=== PATIENT | female | born 1995 | race Caucasian/White ===

== ENCOUNTER 2019-11-22 20:32 | Emergency (ER) | payer OTHER, SELFPAY ==
[2019-11-22 20:32] VITALS: BP 126/102; PULSE 122; RESP 20; TEMP 36.7; O2SAT 98
--- NOTE | 2019-11-22 20:51 | ED_ITS ---
HPI - Alcohol General Chief Complaint: Alcohol Stated Complaint: Alcohol Time Seen by Provider: 11/22/19 20:33 History of Present Illness HPI narrative: [place]. Father reportedly on scene and did not want to take her with him. Brought in by EMS for intoxication. History limited by intoxication. Related Data Home Medications Medication Instructions Recorded Confirmed dextroamphetamine-amphetamine ER ea PO 10/10/19 20 mg 24hr capsule,extend release Allergies Allergy/AdvReac Type Severity Reaction Status Date / Time No Known Allergies Allergy Verified 10/10/19 07:45 Review of Systems Review of Systems: ROS unobtainable: Yes unobtainable due to mental status [facility] Surgical History Surgical History H/O dilation and curettage after delivery 01/2018 Social History Social History Smoking status: Current every day smoker Tobacco type: e-cigarettes/vaping Alcohol intake: current Substance use: never Exam Const: General: healthy appearing, no acute distress and alert Orientation/consciousness: confusion HENMT: Head: normal to inspection Eyes: Pupils: Equal, round and reactive pupils present Resp: Effort & Inspection: normal respiratory effort Auscultation: clear to auscultation bilaterally Cardio: Rate: regular rate Rhythm: regular rhythm GI: GI Palp: Yes Soft to palpation and No Tenderness to palpation present (GI) Skin: General skin exam: normal color Neuro: General: moves all extremities and no focal motor deficits Other: Poor coordination and slurred speech Extrem: General: normal to inspection Psych: Other: Labile mood Course Vital Signs Vital signs: Vital Signs Temperature 36.7 C 11/22/19 20:32 Pulse Rate 122 H 11/22/19 20:32 Respiratory Rate 20 11/22/19 20:32 Blood Pressure 126/102 H 11/22/19 20:32 Pulse Oximetry 98 11/22/19 20:32 Temperature 36.7 C 11/22/19 20:32 Pulse Rate 122 H 11/22/19 20:32 Respiratory Rate 20 11/22/19 20:32 Blood Pressure 126/102 H 11/22/19 20:32 Pulse Oximetry 98 11/22/19 20:32 MDM - Alcohol MDM Narrative Medical decision making narrative: Clinically very intoxicated. Her father arrived. He feels comfortable taking responsibility for her. Differential Diagnosis Differential diagnosis: Likely alcohol intoxication Medical Records Attestation: I reviewed the patient's medical records. Discharge Plan Discharge Clinical Impression: Alcoholic intoxication Patient Disposition: Home, Self-Care Condition: Stable Instructions: Alcohol Intoxication (ED) Prescriptions: No Action dextroamphetamine-amphetamine 20 mg capsule,extended release 24hr PO RF: 0 Follow-up/Referrals: Callum,Eufemia Mendoza MD [Primary Care Provider] -
== END 2019-11-22 22:29 | disposition home or self-care (01) ==
PROVIDERS: Emergency Provider Emergency Medicine; PCP Family Medicine
DX: F10.129 Alcohol abuse with intoxication, unspecified (principal); F17.290 Nicotine dependence, other tobacco product, uncomplicated
CPT/HCPCS: 99283

== ENCOUNTER 2020-01-16 06:58 | Outpatient (NON) | payer OTHER, SELFPAY ==
[2020-01-16 18:22] LABS: SARS-CoV-2 RNA PCR Negative
== END 2020-01-16 06:59 ==
LOC: ANHCOVIDDT 07:03
PROVIDERS: Visit Provider Family Medicine
DX: Z20.828 Contact with and (suspected) exposure to other viral communicable diseases (principal)
CPT/HCPCS: 87635; C9803; U0003

== ENCOUNTER 2021-10-07 13:19 | Observation (INO) | payer BC, SELFPAY ==
[2021-10-07] VITALS (21 sets, daily range): BP systolic 114–145; BP diastolic 64–98; PULSE 98–137; RESP 14–20; TEMP 36.5–37.1; O2SAT 95–100
--- NOTE | ~2021-10-07 | US_ITS ---
EXAMINATION: US venous doppler [facility] DATE: 10/07/2021 14:15 INDICATION: Left lower limb swelling TECHNIQUE: Hernadez scale images without and with compression and Doppler images of the left lower extrem ity veins were obtained. COMPARISON: None FINDINGS: The left common femoral vein, profunda femoral vein, femoral vein, popliteal vein, peroneal trunk, posterior tibial veins, and greater saphenous vein are patent. There is diffuse soft tissue e raymond of the left leg. IMPRESSION: 1. Patent left lower extremity veins. No evidence of deep venous thrombosis. Reviewed, dictated and finalized at location B.
--- NOTE | 2021-10-07 14:01 | ED.SKABFB ---
HPI - Skin/Abscess/Foreign Bdy General Chief complaint: Skin/Abscess/Foreign Body Stated complaint: possible LLE infection Time Seen by Provider: 10/07/21 13:57 Source: patient Mode of arrival: ambulatory Limitations: no limitations History of Present Illness HPI narrative: Patient had a cut, 1 cm left lower leg 2 weeks ago during camping, 1 week later started having redness and pain at the left lower leg, had telemedicine, started on Keflex 500 ,3 times daily for the last 6 days, patient been taking 500 every 4 hours to expedite the process of healing. Is getting worse, went to urgent care today then referred to our emergency room. Patient is healthy otherwise, reports some fever, chills, nausea 4 days ago Related Data Home Medications Medication Instructions Recorded Confirmed dextroamphetamine-amphetamine ER 1 cap PO DAILY 10/07/21 10/07/21 30 mg 24hr capsule,extend release Allergies Allergy/AdvReac Type Severity Reaction Status Date / Time No Known Allergies Allergy Verified 10/07/21 14:22 Review of Systems Review of Systems: All systems reviewed & are unremarkable except as noted in HPI and below PMFSH Surgical History Surgical History H/O dilation and curettage after delivery 01/2018 Social History Social History Smoking status: Current every day smoker Tobacco type: e-cigarettes/vaping Alcohol intake: current Alcohol use details: twice a week Substance use: never Exam Narrative: General appearance: Well-developed, well-nourished Skin: Normal color extensive erythema, warmth and 2+ edema left foot all the way up to the knee, circumferential, 1 cm laceration lateral side lower leg, no discharge, healing. Head: Normocephalic, nontraumatic Eyes: Clear conjunctiva ENT: Oropharynx normal, ears normal, nose normal Neck: Supple, nontender Chest and respiratory: Airway patent, no respiratory distress, no accessory muscle use Heart: Regular rate/rhythm Abdomen: Soft, nontender, no organomegaly, quiet bowel sounds Vascular: , normal capillary refill. Musculoskeletal: Normal range of motion, nontender back Neurologic: Alert and oriented ?3, [employer] is normal as tested, no gross motor deficit Course Vital Signs Vital signs: Vital Signs Temperature 37.1 C 10/07/21 13:43 Pulse Rate 137 H 10/07/21 13:43 Respiratory Rate 20 10/07/21 13:43 Blood Pressure 145/98 H 10/07/21 13:43 Pulse Oximetry 99 10/07/21 13:43 Oxygen Delivery Room Air 10/07/21 13:43 Temperature 37.1 C 10/07/21 13:43 Pulse Rate 137 H 10/07/21 13:43 Respiratory Rate 20 10/07/21 13:43 Blood Pressure 145/98 H 10/07/21 13:43 Pulse Oximetry 99 10/07/21 13:43 Oxygen Delivery Room Air 10/07/21 13:43 MDM - Skin/Abscess/Foreign Bdy Differential Diagnosis Differential diagnosis: Likely abscess of skin or subcutaneous tissue and cellulitis Lab Data Result diagrams: 10/07/21 14:40 10/07/21 14:40 Labs: Lab Results 10/07/21 10/07/21 10/07/21 Range/Units 14:40 14:40 14:40 WBC Pending RBC Pending Hgb Pending Hct Pending MCV Pending MCH Pending MCHC Pending RDW Pending Plt Count Pending MPV Pending Immature Gran % (Auto) Pending Neut % (Auto) Pending Lymph % (Auto) Pending [place] % (Auto) Pending Eos % (Auto) Pending Baso % (Auto) Pending Lymph # (Auto) Pending [place] # (Auto) Pending Eos # (Auto) Pending Baso # (Auto) Pending Abs Immat Gran (auto) Pending Absolute Neuts (a
[2021-10-07 14:52] LABS: Basophils Absolute Auto 0.1 K/mm3 (0.0-0.1); Basophils Percent Auto 0.9 % (0.2-1.2); Eosinophils Absolute Auto 0.1 K/mm3 (0-0.3); Eosinophils Percent Auto 0.7 % (0-4.4); Hematocrit 43.4 % (37.0-47.0); Hemoglobin 14.1 g/dL (12.0-15.0); Immature Granulocyte Absolute 0.83 K/mm3 (0.00-0.031); Lymphocytes Absolute Auto 1.92 K/mm3 (0.9-3.2); Lymphocytes Percent Auto 16.2 % (18.3-44.2); Mean Corpuscular HGB Conc 32.5 g/dl (32-36); Mean Corpuscular Hemoglobin 30.2 pg (26-34); Mean Corpuscular Volume 92.9 fl (80-100); Mean Platelet Volume 10.2 fl (7.4-10.4); Monocytes Absolute Auto 0.9 K/mm3 (0.1-0.6); Monocytes Percent Auto 7.9 % (2.6-8.5); Neutrophils Percent Auto 67.3 % (45.5-73.1); Platelet Count Result 370 k/mm3 (150-375); Red Blood Count 4.67 M/mm3 (4.2-5.4); Red Cell Distribution Width 13.6 % (11.5-14.5); White Blood Count 11.8 K/mm3 (4.5-10.0)
[2021-10-07 15:07] LABS: Lactic Acid Reflex 0.9 mmol/L (0.7-2.0)
[2021-10-07 15:08] LABS: INR 1.1; Prothrombin Time 13.3 Seconds (11.1-14.7)
--- NOTE | 2021-10-07 15:11 | PC.NURSE ---
Report given to YANI Pereyra
[2021-10-07 15:12] LABS: Alanine Aminotransferase 72 U/L (6-35); Albumin Level 4.3 g/dL (3.5-5.1); Alkaline Phosphatase 80 U/L (38-126); Anion Gap 12 mmol/L (8-16); Aspartate Amino Transferase 87 U/L (14-36); Bilirubin,Total 0.4 mg/dL (0.2-1.3); Blood Urea Nitrogen 13 mg/dL (7-17); Calcium 9.8 mg/dL (8.4-10.2); Carbon Dioxide 27 mmol/L (22-30); Chloride 98 mmol/L (98-107); Estimated CRCL calculation 117 ml/min; Estimated Glomerular Filt Rate > 60; Glucose 98 mg/dL (65-110); Potassium 4.2 mmol/L (3.4-5.0); Sodium 137 mmol/L (137-145)
[2021-10-07 15:21] LABS: CRP 10.5 mg/dL (<1.0)
--- NOTE | 2021-10-07 17:10 | PM.IMHP ---
H&P: HPI History of Present Illness Date/Time: 10/07/21 17:10 Chief Complaint: Left leg infection. Narrative: This is a pleasant 26-year-old female with no significant medical history presented to the emergency department for evaluation of a left leg infection. She went camping 2 weekends ago and got a small scratch on her left lower leg, presumably from surrounding brush. She thought nothing of it until about 5 days later when she developed redness and swelling of the left leg left lower leg. She was prescribed Keflex after speaking with a doctor via telemedicine and despite taking the antibiotic her leg has not improved and in fact it has gotten worse. She has been trying to keep the leg elevated but unfortunately she continues to have a pretty significant throbbing and tight pain despite taking Tylenol and ibuprofen. She also endorses a subjective fever, sweats, decreased appetite, and nausea. On arrival to the ER her vital signs were stable and she has been afebrile. She was given a dose of vancomycin for left leg cellulitis and she is being admitted for further IV antibiotics given outpatient treatment failure. Review of Systems Review of Systems: Twelve systems were reviewed. No cold or flu symptoms. No chest or pleuritic pain. No shortness of breath or palpitations. She denies paresthesias, skin color, and temperature changes of the affected limb. A no history of VTE. Except as documented, all other systems were reviewed and are negative. [facility] Past Medical History Medical History (Updated 10/07/21 @ 22:25 by Marzena Shipman PA-C) Anxiety Attention deficit disorder Surgical History Surgical History (Updated 10/07/21 @ 22:22 by Marzena Shipman PA-C) History of dilation and curettage (01/2018) Family History Family History (Updated 10/07/21 @ 22:22 by Marzena Shipman PA-C) Other No pertinent family history Social History Social History (Updated 10/07/21 @ 22:23 by Marzena Shipman PA-C) Social History: Surrogate medical decision maker: Angel Parr, mother. Code status: Full code. Smoking status: Current every day smoker Tobacco type: e-cigarettes/vaping Alcohol intake: former Alcohol use details: She has not drank heavily for over a year. Substance use: never Substance use type: does not use Living arrangements: with family Spiritual care concerns: No Meds Home Medications and Allergies Home Medications Medication Instructions Recorded Confirmed Type dextroamphetamine-amphetamine ER 1 cap PO DAILY 10/07/21 10/07/21 History 30 mg 24hr capsule,extend release Allergies Allergy/AdvReac Type Severity Reaction Status Date / Time No Known Allergies Allergy Verified 10/07/21 14:22 Vital Signs Vital Signs - 24 hr 10/07/21 13:43 10/07/21 14:30 10/07/21 15:04 Temperature 98.8 F Pulse Rate 137 H 121 H Respiratory Rate 20 18 Blood Pressure 145/98 H 121/91 H Pulse Oximetry 99 98 97 Oxygen Delivery Room Air 10/07/21 15:15 10/07/21 15:17 10/07/21 15:30 Temperature Pulse Rate 113 H 115 H Respiratory Rate Blood Pressure 125/84 Pulse Oximetry 97 97 97 Oxygen Delivery 10/07/21 15:32 10/07/21 15:58 10/07/21 15:33 Temperature Pulse Rate 110 H 107 H Respiratory Rate 16 Blood Pressure 126/84 117/79 Pulse Oximetry 97 100 97 Oxygen Delivery Exam Narrative: General: Well-developed, nontoxic-appearing female sitting up in bed. Weight: 79.5 kg. BMI: 32.1. HEENT: PERRL, EOMI. Conjunctivae anicteric. Oral mucosa moist. Neck: Supple. Respiratory: Lungs are clear to auscultation bilaterally. Cardiovascular: Regular rate and rhythm with S1-S2. Gastrointestinal: Abdomen is soft, nontender, and nondistended with positive bowel sounds. No organomegaly. Skin: Warm and dry. A little over a 1 cm superficial laceration on the left lateral lower leg without drainage or fluctuance. There is surrounding erythema whic
--- NOTE | 2021-10-07 18:49 | PC.NURSE ---
report received from Roddy
--- NOTE | 2021-10-07 19:48 | PC.NURSE ---
This patient, Nelson Packer, was admitted to [facility] Surg Room 300-01. Patient/family oriented to hospital policies and general routines including ID bracelet, bed and alarms, visiting hours, pain management, procedures, bathroom and other care routines, personal items, smoking policy, room service/diet, and visiting hours. Information on how to activate the Rapid Response Team has been discussed. Patient/Family are encouraged to report perceived risks to care and to ask questions if they do not understand what they are told or what they should do.
[2021-10-07] MEDS: IBUPROFEN 600 MG TABLET PO (20:01)
[2021-10-07] MEDS: ACETAMINOPHEN 325 MG TABLET 650 MG PO (22:59)
[2021-10-07 23:39] LABS: Acetaminophen < 10 ug/mL (10-30)
[2021-10-08 00:33] LABS: Hepatitis B Surface Antigen Negative (Negative)
[2021-10-08 00:39] LABS: HAV RESULT Negative (Negative); Hepatitis B Core IgM Result Negative (Negative)
[2021-10-08 00:51] LABS: Hepatitis C Virus Antibody Negative (Negative)
[2021-10-08 05:39] VITALS: BP 117/96; PULSE 76; RESP 16; TEMP 36.3; O2SAT 97
[2021-10-08 06:52] LABS: Hematocrit 37.8 % (37.0-47.0); Hemoglobin 12.4 g/dL (12.0-15.0); Mean Corpuscular HGB Conc 32.8 g/dl (32-36); Mean Corpuscular Hemoglobin 30.2 pg (26-34); Mean Corpuscular Volume 92.2 fl (80-100); Mean Platelet Volume 10.5 fl (7.4-10.4); Platelet Count Result 334 k/mm3 (150-375); Red Cell Distribution Width 13.3 % (11.5-14.5); White Blood Count 9.7 K/mm3 (4.5-10.0)
[2021-10-08 07:10] LABS: Alanine Aminotransferase 76 U/L (6-35); Albumin Level 3.5 g/dL (3.5-5.1); Alkaline Phosphatase 65 U/L (38-126); Anion Gap 9 mmol/L (8-16); Aspartate Amino Transferase 108 U/L (14-36); Bilirubin,Total 0.3 mg/dL (0.2-1.3); Blood Urea Nitrogen 15 mg/dL (7-17); Calcium 8.8 mg/dL (8.4-10.2); Carbon Dioxide 27 mmol/L (22-30); Chloride 99 mmol/L (98-107); Estimated CRCL calculation 121 ml/min; Estimated Glomerular Filt Rate > 60; Glucose 101 mg/dL (65-110); Magnesium 2.3 mg/dL (1.6-2.3); Potassium 3.8 mmol/L (3.4-5.0); Sodium 135 mmol/L (137-145)
[2021-10-08] MEDS: ENOXAPARIN 40 MG/0.4 ML SYRINGE SUB-Q (09:04)
[2021-10-08 14:00] VITALS: BP 122/83; PULSE 104; RESP 16; TEMP 36.6; O2SAT 99
--- NOTE | 2021-10-08 14:13 | PM.IMPN ---
Progress Note: A&P Assessment and Plan (1) Left leg cellulitis: Code(s): L03.116 - Cellulitis of left lower limb Status: Acute Assessment and Plan: She has been on Keflex for several days with worsening symptoms. no purulent drainage or fluctuance noted though. Started on vancomycin and cefazolin. I have encouraged the patient elevate her leg as much as possible. Analgesics available as needed. edema and cellulitic changes continues to improve Duplex ultrasound negative for DVT (2) Elevated LFTs: Code(s): R79.89 - Other specified abnormal findings of blood chemistry Status: Acute Assessment and Plan: Abdominal exam is benign. Acetaminophen level is normal but itis panel is negative Subjective Date/time seen: 10/08/21 14:13 Interval history: HPI:This is a pleasant 26-year-old female with no significant medical history presented to the emergency department for evaluation of a left leg infection. She went camping 2 weekends ago and got a small scratch on her left lower leg, presumably from surrounding brush. She thought nothing of it until about 5 days later when she developed redness and swelling of the left leg left lower leg. She was prescribed Keflex after speaking with a doctor via telemedicine and despite taking the antibiotic her leg has not improved and in fact it has gotten worse. She has been trying to keep the leg elevated but unfortunately she continues to have a pretty significant throbbing and tight pain despite taking Tylenol and ibuprofen. She also endorses a subjective fever, sweats, decreased appetite, and nausea. On arrival to the ER her vital signs were stable and she has been afebrile. She was given a dose of vancomycin for left leg cellulitis and she is being admitted for further IV antibiotics given outpatient treatment failure. 10/08/2021 redness is improving swelling still persists but improving as well remains afebrile. Denies chest pain or shortness of breath. Review of Systems Review of Systems: All systems reviewed & are unremarkable except as noted in HPI and below Exam Narrative: General: Well-developed, nontoxic-appearing female sitting up in bed. HEENT: PERRL, EOMI. Conjunctivae anicteric. Oral mucosa moist. Neck: Supple. Nontender Respiratory: Lungs are clear to auscultation bilaterally. Cardiovascular: Regular rate and rhythm with S1-S2. Gastrointestinal: Abdomen is soft, nontender, and nondistended with positive bowel sounds. No organomegaly. Skin: Warm and dry. A little over a 1 cm superficial laceration on the left lateral lower leg without drainage or fluctuance. There is surrounding erythema which extends to the knee and down to the dorsum of the foot associated with edema which is though receding. cough area warm to touch and mildly tender. Extremities: No cyanosis or clubbing. There is edema of the left leg. Radial and pedal pulses intact. Neurological: Alert. Cranial nerves 2-12 are grossly intact. No gross focal deficits to casual conversation. Psychiatric: Pleasant and cooperative with normal mood and affect. Judgment and insight intact. Objective Data Vital Signs Vital Signs: Vital Signs - 24 hr 10/07/21 14:30 10/07/21 15:04 10/07/21 15:15 Temperature Pulse Rate 121 H 113 H Respiratory Rate 18 Blood Pressure 121/91 H Pulse Oximetry 98 97 97 Oxygen Delivery 10/07/21 15:17 10/07/21 15:30 10/07/21 15:32 Temperature Pulse Rate 115 H 110 H Respiratory Rate Blood Pressure 125/84 126/84 Pulse Oximetry 97 97 97 Oxygen Delivery 10/07/21 15:58 10/07/21 15:33 10/07/21 16:42 Temperature Pulse Rate 107 H Respiratory Rate 16 Blood Pressure 117/79 Pulse Oximetry 100 97 95 Oxygen Delivery 10/07/21 16:45 10/07/21 16:47 10/07/21 17:00 Temperature Pulse Rate Respiratory Rate Blood Pressure 120/84 Pulse Oximetry 97 97 98 Oxygen Delivery 10/07/21 17:02 10/07/21 17
[2021-10-08 20:02] VITALS: O2SAT 98
[2021-10-08] MEDS: ACETAMINOPHEN 325 MG TABLET 650 MG PO (20:45)
[2021-10-08 22:00] VITALS: BP 142/86; PULSE 105; RESP 18; TEMP 36.1; O2SAT 100
[2021-10-09 03:39] LABS: Basophils Absolute Auto 0.1 K/mm3 (0.0-0.1); Eosinophils Absolute Auto 0.1 K/mm3 (0-0.3); Eosinophils Percent Auto 1.2 % (0-4.4); Hematocrit 40.4 % (37.0-47.0); Hemoglobin 12.9 g/dL (12.0-15.0); Immature Granulocyte Absolute 0.84 K/mm3 (0.00-0.031); Immature Granulocyte Percent A 9.8 % (0-0.5); Lymphocytes Absolute Auto 1.99 K/mm3 (0.9-3.2); Lymphocytes Percent Auto 23.2 % (18.3-44.2); Mean Corpuscular HGB Conc 31.9 g/dl (32-36); Mean Platelet Volume 10.1 fl (7.4-10.4); Monocytes Absolute Auto 0.6 K/mm3 (0.1-0.6); Monocytes Percent Auto 6.4 % (2.6-8.5); Neutrophils Percent Auto 58.4 % (45.5-73.1); Platelet Count Result 359 k/mm3 (150-375); Red Cell Distribution Width 13.3 % (11.5-14.5); White Blood Count 8.6 K/mm3 (4.5-10.0)
[2021-10-09 03:57] LABS: Alanine Aminotransferase 104 U/L (6-35); Albumin Level 3.6 g/dL (3.5-5.1); Alkaline Phosphatase 64 U/L (38-126); Anion Gap 9 mmol/L (8-16); Aspartate Amino Transferase 148 U/L (14-36); Bilirubin,Total 0.2 mg/dL (0.2-1.3); Blood Urea Nitrogen 16 mg/dL (7-17); Calcium 8.6 mg/dL (8.4-10.2); Carbon Dioxide 27 mmol/L (22-30); Chloride 103 mmol/L (98-107); Estimated CRCL calculation 121 ml/min; Estimated Glomerular Filt Rate > 60; Glucose 108 mg/dL (65-110); Potassium 4.2 mmol/L (3.4-5.0); Sodium 139 mmol/L (137-145)
[2021-10-09 04:01] LABS: Vancomycin Trough 6.5 ug/mL (10.0-20.0)
[2021-10-09 04:07] LABS: Atypical Lymphocytes Present; Platelet Estimate Adequate (Adequate)
[2021-10-09 06:00] VITALS: BP 121/81; PULSE 84; RESP 18; TEMP 35.7; O2SAT 97
[2021-10-09] MEDS: ENOXAPARIN 40 MG/0.4 ML SYRINGE SUB-Q (07:56)
--- NOTE | 2021-10-09 08:31 | PHAR ---
The patient's home med of Dextroamphetamine-Amphetamine 30 mg capsule,extended release 24hr has been verified.
--- NOTE | 2021-10-09 13:10 | PM.DS ---
DS: Admitting Diagnosis Discharge Date 10/09/2021 Admitting Diagnosis left leg cellulitis DS: Discharge Diagnosis Discharge Diagnosis (1) Left leg cellulitis: Code(s): L03.116 - Cellulitis of left lower limb Status: Acute (2) Elevated LFTs: Code(s): R79.89 - Other specified abnormal findings of blood chemistry Status: Acute DS: Summary Hospital Course Reason for hospitalization: This is a pleasant 26-year-old female with no significant medical history presented to the emergency department for evaluation of a left leg infection. She went camping 2 weekends ago and got a small scratch on her left lower leg, presumably from surrounding brush. She thought nothing of it until about 5 days later when she developed redness and swelling of the left leg left lower leg. She was prescribed Keflex after speaking with a doctor via telemedicine and despite taking the antibiotic her leg has not improved and in fact it has gotten worse. She has been trying to keep the leg elevated but unfortunately she continues to have a pretty significant throbbing and tight pain despite taking Tylenol and ibuprofen. She also endorses a subjective fever, sweats, decreased appetite, and nausea. On arrival to the ER her vital signs were stable and she has been afebrile. She was given a dose of vancomycin for left leg cellulitis and she is being admitted for further IV antibiotics given outpatient treatment failure. Hospital Course: # left leg cellulitis fail outpatient treatment with cephalexin. venous duplex was negative for DVT. Started on vancomycin and Ancef on admission. Improved cellulitis still has some swelling left. Edema pain and warmth has resolved. Will switch antibiotic to Omnicef and doxycycline for 7 more days to complete the course follow-up with PCP as an outpatient basis in a week. Sooner if erythema worsens or fever develops. # Elevated liver enzymes unclear etiology probably from underlying infection. She used to drink quite a bit. Now had. Since a year now. acetaminophen level is negative. Hepatitis panel is negative as well. Will recheck labs in a week. Follow-up with PCP with regard to this # ADHD on Adderall Time Spent with Patient Time attestation: Total time spent providing and/or coordinating discharge services: 40 minutes Exam Narrative: General: Well-developed, nontoxic-appearing female sitting up in bed. HEENT: PERRL, EOMI. Conjunctivae anicteric. Oral mucosa moist. Neck: Supple. Nontender Respiratory: Lungs are clear to auscultation bilaterally. Cardiovascular: Regular rate and rhythm with S1-S2. Gastrointestinal: Abdomen is soft, nontender, and nondistended with positive bowel sounds. No organomegaly. Skin: Warm and dry. A little over a 1 cm superficial laceration on the left lateral lower leg without drainage or fluctuance. Extremities: No cyanosis or clubbing. There is edema of the left leg. Radial and pedal pulses intact. Neurological: Alert. Cranial nerves 2-12 are grossly intact. No gross focal deficits to casual conversation. Psychiatric: Pleasant and cooperative with normal mood and affect. Judgment and insight intact. DS: Data Data Completed and Pending Labs on day of discharge: Labs from last 24 hours 10/09/21 10/09/21 10/09/21 03:17 03:17 03:17 WBC 8.6 RBC 4.30 Hgb 12.9 Hct 40.4 MCV 94.0 MCH 30.0 MCHC 31.9 L RDW 13.3 Plt Count 359 MPV 10.1 Immature Gran % (Auto) 9.8 H Neut % (Auto) 58.4 Lymph % (Auto) 23.2 [place] % (Auto) 6.4 Eos % (Auto) 1.2 Baso % (Auto) 1.0 Lymph # (Auto) 1.99 [place] # (Auto) 0.6 Eos # (Auto) 0.1 Baso # (Auto) 0.1 Abs Immat Gran (auto) 0.84 H Absolute Neuts (auto) 5.0 Absolute Nucleated RBC 0.0 Nucleated RBC % 0.0 Atypical Lymphocytes Present Platelet Estimate Adequate Sodium 139 Potassium 4.2 Chloride 103 Carbon Dioxide 27 Anion Gap 9 BUN
== END 2021-10-09 14:20 | disposition home or self-care (01) ==
LOC: ANHED 14:26 → ANH3MEDSUR 18:29
PROVIDERS: Physician Assistant; Admitting Provider Family Medicine; Emergency Provider Emergency Medicine; PCP Family Medicine; Visit Provider Internal Medicine
DX: L03.116 Cellulitis of left lower limb (principal); R79.89 Other specified abnormal findings of blood chemistry; F17.290 Nicotine dependence, other tobacco product, uncomplicated; F90.9 Attention-deficit hyperactivity disorder, unspecified type
CPT/HCPCS: 36415; 80053; 80074; 80202; 80307; 83605; 83735; 85025; 85027; 85610; 85730; 86140; 87040; 93971; 96365; 96366; 96367; 96372; 99285; A9270; G0378; J0690; J1650; J3370

== ENCOUNTER 2021-12-10 08:32 | Outpatient (CLI) | payer BC, SELFPAY ==
--- NOTE | ~2021-12-10 | CT_ITS ---
EXAMINATION: CTA LE LT DATE: 12/10/2021 09:14 INDICATION: Localized swelling to the left lower limb. TECHNIQUE: Computed tomographic angiography (CTA) of the abdominal, pelvis, and both lower extremitie s was performed with 150 mL Omnipaque 350 intravenous contrast. Automated exposure control and iterat itzel reconstruction technique were employed. The dose-length product was 1412.15 mGy-cm. COMPARISON: CT dated 03/02/2017 FINDINGS: ABDOMINAL AORTA AND ITS BRANCHES: Normal caliber abdominal aorta without evident atherosclerotic plaque or dissection. Anatomic variant common origin of the celiac axis and superior mesenteric artery. Bilateral renal arteries and inferi or mesenteric artery are normal. PELVIC VASCULATURE: Bilateral common, external and internal iliac arteries are normal. RIGHT LOWER EXTREMITY: The right common femoral, superficial femoral, profunda femoral, popliteal, peroneal and anterior and posterior tibial arteries are normal with no evident atherosclerotic plaque or dissection. There is three-vessel runoff to the ankle at both lower extremities. LEFT LOWER EXTREMITY: The left common femoral, superficial femoral, profunda femoral, popliteal, peroneal and anterior and posterior tibial arteries are normal with no evident atherosclerotic plaque or dissection. There is t hree-vessel runoff to the ankle at both lower extremities. ADDITIONAL FINDINGS: Visualized lung bases are clear. Heart size is normal. No pericardial or pleural effusion. Diffuse he patic steatosis with focal sparing along the gallbladder fossa. 2.4 x 1.8 cm avidly enhancing mass in segment 6 of the liver which without evident correlate on the prior CT. Gallbladder, spleen, pancrea s, bilateral adrenal glands and kidneys are normal. There are few sigmoid diverticula without adjacen t inflammatory change to suggest diverticulitis. Small bowel and appendix are normal. Bladder, anteve rted uterus and bilateral adnexa are normal. No free intraperitoneal gas or fluid. No pathologically enlarged abdominal or pelvic lymphadenopathy. Mild lumbar levocurvature with minimal spondylosis. Bon es are otherwise unremarkable. Nonspecific subcutaneous edema about the distal left calf and ankle pa in and extending over the dorsum of the left foot. IMPRESSION: 1. Nonspecific subcutaneous edema in the distal left lower limb beginning at the mid calf extending into the dorsum of the foot. 2. Normal variant common origin of the celiac axis and superior mesenteric artery. Otherwise unremark able CT angiogram of the abdomen, pelvis and bilateral lower extremities. 3. Diffuse hepatic steatosis with indeterminate 2.4 x 1.8 cm avidly enhancing lesion in segment 6 of the liver with most likely differential including hepatic adenoma, focal nodular hyperplasia or heman gioma. Primary hepatic malignancy and metastatic disease would be unlikely given patient age and in t he absence of known liver disease or known primary malignancy respectively. Could consider further ev aluation with pre and postcontrast MRI. Reviewed, dictated and finalized at location A. IMPRESSION: 1. Nonspecific subcutaneous edema in the distal left lower limb beginning at t he mid calf extending into the dorsum of the foot. 2. Normal variant common origin of the celiac axis and superior mesenteric zehra ry. Otherwise unremarkable CT angiogram of the abdomen, pelvis and bilateral lo wer extremities. 3. Diffuse hepatic steatosis with indeterminate 2.4 x 1.8 cm avidly enhancing l esion in segment 6 of the liver with most likely differential including hepatic adenoma, focal nodular hyperplasia or hemangioma. Primary hepatic malignancy a nd metastatic disease would be unlikely given patient age and in the absence of known liver d
== END 2021-12-10 08:33 | disposition home or self-care (01) ==
PROVIDERS: PCP Family Medicine; Visit Provider Family Medicine
DX: R60.0 Localized edema (principal); K76.0 Fatty (change of) liver, not elsewhere classified
CPT/HCPCS: 73706; Q9967

== ENCOUNTER 2022-03-12 12:31 | Outpatient (CLI) | payer BC, SELFPAY ==
--- NOTE | ~2022-03-12 | MR_ITS ---
EXAMINATION: MR abdomen wo/w con DATE: 03/12/2022 13:28 INDICATION: Hepatomegaly. Liver mass. TECHNIQUE: Magnetic resonance imaging (MRI) of the abdomen was performed without and with 16 mL Multi jessica intravenous contrast. Sequences included coronal T2-weighted SS-FSE, coronal and axial FS 2D-F IESTA, axial STIR FSE, axial T2-weighted SS-FSE, axial T2-weighted FS SS-FSE, axial diffusion-weighte d SE, axial dual-echo T1-weighted FSPGR, and axial and coronal T1-weighted LAVA. Postcontrast axial T 1-weighted LAVA images were obtained in a time course. Postcontrast coronal T1-weighted LAVA images w ere obtained. COMPARISON: CT dated 03/02/2017 FINDINGS: Heart size is normal. No pericardial or pleural effusion. Diffuse hepatic steatosis with prominent si gnal dropout on opposed phase imaging with small amount of focal fatty sparing along the gallbladder fossa. 2.5 cm mass in segment 6 of the liver which is slightly T1 hyperintense to the surrounding hep atic parenchyma with linear hypointense central scar. There is relatively prominent diffuse enhanceme nt on the early scintigraphic images with the exception of thin linear central scar. There is persist ent diffuse enhancement without washout on the 5 and 10 minute images but with delayed enhancement of the central scar greater degree than the surrounding mass which would be classic for focal nodular h yperplasia. No other hepatic lesions identified. Spleen, pancreas, bilateral adrenal glands and kidne ys are normal. Visualized portions of bowels are unremarkable. No pathologically enlarged abdominal l ymphadenopathy. Mild lumbar levocurvature. Normal bone marrow signal throughout. IMPRESSION: 1. 2.5 cm mass in segment 6 of liver with classic signal and enhancement pattern for focal nodular hy perplasia Reviewed, dictated and finalized at location B. [facility] IMPRESSION: 1. 2.5 cm mass in segment 6 of liver with classic signal and enhancement patter n for focal nodular hyperplasia
== END 2022-03-12 12:32 ==
PROVIDERS: PCP Family Medicine; Visit Provider Family Medicine
DX: R16.0 Hepatomegaly, not elsewhere classified (principal)
CPT/HCPCS: 74183; A9577